=== PATIENT | male | born 1970 | race Caucasian/White ===

== ENCOUNTER 2021-11-29 11:22 | Emergency (ER) | payer SELFPAY ==
--- NOTE | 2021-11-29 11:30 | ECG_ITS ---
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 Measurements Intervals [place] Rate: 110 P: 8 UT: 132 QRS: 30 QRSD: 82 T: 51 QT: 318 QTc: 431 Interpretive Statements SINUS TACHYCARDIA INDETERMINATE AXIS No previous ECG available for comparison Electronically Signed On 11-29-2021 17:57:25 CDT by Caitie Mitchell M.D. [id number]
[2021-11-29 11:31] VITALS: BP 138/93; PULSE 117; RESP 20; TEMP 36.5; O2SAT 95; BMI 47.9
--- NOTE | 2021-11-29 11:31 | XR_ITS ---
WS: [id number] Exam: XR chest 1V portable [id number] Date/Time of Exam: 11/29/2021 11:31 AM Reason For Exam: chest pain Comparison 12/30/2015. Findings: The lungs are clear and fully expanded. Costophrenic angles are sharp. No infiltrates. Bronchovascula r relief appears normal. Cardiac silhouette is unremarkable. Bony elements are intact. XR/XR chest 1V portable [id number] IMPRESSION: Unremarkable chest radiograph.
[2021-11-29 12:45] LABS: Basophils # 0.1 10^3/uL (0.0-0.1); Basophils % 0.9 %; Eosinophils % 0.4 %; Hemoglobin 15.7 g/dL (11.7-16.6); Lymphocytes # 0.8 10^3/uL (0.8-4.8); Lymphocytes % 10.2 %; Mean Corpuscular HGB Conc 33.4 g/dL (30.0-36.0); Mean Corpuscular Volume 86.9 fl (80-94); Mean Platelet Volume 9.1 fL (7.4-10.4); Monocytes # 0.5 10^3/uL (0.2-0.9); Monocytes % 6.4 %; Neutrophils # 6.29 10^3/uL (1.8-7.7); Neutrophils % 81.6 %; Nucleated Red Blood Cells % 0 %; Platelet Count 298 10^3/cmm (130-400); Red Blood Count 5.41 10^6/uL (4.1-5.3); White Blood Count 7.7 10^3/uL (4.0-10.0)
[2021-11-29 13:07] LABS: Alanine Aminotransferase 19 U/L (0-41); Albumin Level 4.5 g/dL (3.5-5.2); Alkaline Phosphatase 114 U/L (40-130); Anion Gap 19.1 (5-19); Aspartate Amino Transferase 19 U/L (0-40); Blood Urea Nitrogen 13 mg/dL (6-20); Calcium 9.4 mg/dL (8.5-10.5); Carbon Dioxide 22 mmol/L (22-29); Chloride 104 mmol/L (98-107); Globulin 3.6 g/dL (1.3-4.6); Glucose 108 mg/dL (65-115); Osmolality Calculated 293 mOsm/kg (285-295); Potassium 4.1 mmol/L (3.5-5.1); Sodium 141 mmol/L (136-145); Total Protein 8.1 g/dL (6.6-8.7); Troponin(5th) Baseline 6 ng/L (0-15)
--- NOTE | 2021-11-29 13:07 | W.ED.GENADLT ---
HPI - General Adult General: Chief complaint: Chest Pain Stated complaint: chest pain Time Seen by Provider: 11/29/21 12:44 History of Present Illness: CC: Chest Pain HPI: This is a 51yo patient no PMH presenting to the ED complaining of acute sudden onset intermittent pressure-like chest pain for the last 6-month now worsening today. Patient is was at work when she felt lightheaded with chest pressure earlier today and almost passed out. Happened about an hour ago. Patient describes mild pressure-like chest pain. No associated with shortness of breath, chest pain or dyspnea on exertion. Pain is not tearing in nature and does not radiate to the back. Pain not associated with vomiting or PO intake. Denies any recent sympathomimetic drug use. Patient denies any cough. Denies palpitations, dysphagia, diaphoresis, radiation of pain to bilateral arms, jaw. Denies F/N/V/D. Patient denies any recent immobility, surgery, unilateral leg swelling, or prior PE. Patient denies any orthopnea. Onset: 1 hr ago Duration: intermiittent for a few minutes Location: home Severity: moderate Associated symptoms: Reports chest pain; Deny dyspnea, nausea, rash, palpitations or vomiting Review of Systems Const: Denies: fever(s) or chills Eyes: Denies: change in vision ENMT: Denies: mouth pain Card: Reports: chest pain; Denies: palpitations Resp: Denies: dyspnea or non-productive cough GI: Denies: abdominal pain, nausea, vomiting or diarrhea : Denies: dysuria Musc: Denies: extremity pain Skin/Breast: Denies: rash or new lesions Neuro: Reports: other (+light-headedness); Denies: weakness in extremities Psych: Reports: other (Normal mood) Fernando/Lymph: Denies: easy bruising PFSH ED PFSH: Medical History No pertinent past medical history Social History Smoking and tobacco status: never smoked Alcohol intake: never Substance/Drug Use: never Physical Exam Const: COMMON NORMALS: alert HENMT: COMMON NORMALS: atraumatic HEAD & SCALP: atraumatic MOUTH: moist mucous membranes not abnormal Eye: COMMON NORMALS: EOMs intact bilaterally and conjunctivae normal CONJUNCTIVA: Yes conjunctivae normal Neck/C-Spine: COMMON NORMALS: full ROM and supple Resp: COMMON NORMALS: normal respiratory effort and clear to auscultation bilaterally AUSCULTATION: clear to auscultation bilaterally Cardio: COMMON NORMALS: regular rate RATE: regular rate OTHER: 2+ radial pulses b/l GI: COMMON NORMALS: Soft to palpation and non-tender PALPATION: Yes Soft to palpation OTHER: No focal TTP. NO guarding rebound, guarding, rigidity. No CVA tenderness to percussion. Neg Hubbard/Neg McBurney's point tenderness, no suprabupic tenderness to palpation. Extremity: COMMON NORMALS: full ROM OTHER: +no lower extremity edema b/l Neuro: SENSORIUM/ORIENTATION: Yes alert MOTOR EXAM: No Abnormal motor strength present and Other motor observations present (no focal motor deficits) Psych: COMMON NORMALS: speech normal SPEECH: Yes normal speech MOOD & AFFECT: Yes euthymic mood Course Vital Signs: Vital signs: Vital Signs Temperature 97.7 F 11/29/21 11:31 Pulse Rate 90 11/29/21 14:03 Respiratory Rate 16 11/29/21 14:03 Blood Pressure 132/87 11/29/21 14:03 Pulse Oximetry 93 11/29/21 14:03 Oxygen Delivery Me thod 11/29/21 14:03 MDM - General Adult Medical Decision Making [51]yo patient w/ no known PMH presenting to the ED with evaluation of new onset pressure chest pain and near syncope today. HDS, pulse 2+ radially bilaterally, no signs of fluid overload, AAOx3, neuro exam intact. Workup: ECG x 2, CXR, CBC, BMP, Troponin x 2 Interventions: ASA, morphine 4mg Findings: ECG: No overt evidence of STEMI, hyperacute T waves, localizable STD or T wave inversions. No evidence of Brugada?s sign, delta wave, epsilon wave, significantly prolonged QTc, or malignant arrhythmia. No Q waves. Other Labs unremarkable for emergent problems. CXR: Without PTX, PNA, or widened mediastinum Last Stress Test: never Last Heart Catheterization: never HEART Score: 2 Dimer wnl [2:06] On reassessment, the patient is HDS, no complaints of persistent chest pain in the ED after evaluation. ECG is non-ischemic. Troponin x2 within normal limit. Workup today is unremarkable. Doubt ACS/PE or other emergent causes of chest pain. HEART SCORE of 2 (age and story). Doubt ACS/PE or other emergent causes of chest pain. No suspicion for aortic dissection given no widened mediastinum, 2+ upper extremity pulses, or tearing pain. No suspicion for PE given no pleuritic chest pain, recent immobilization or surgery hemoptysis, or other VTE risk factors. EKG is non-ischemic. XR normal. Patiently, patient was noted to be tachycardic on arrival. However after IVF, patient reports feeling symptomatically proved. She no longer complains lightheadedness. I have given patient follow up with our rehabilitation caseworker to be seen by our outpatient Cardiology for evaluation of chest pain. Patient aware of a call from our rehabilitation caseworker to schedule for appointment(s) and verbalizes understanding of the importance of following up. Rx: Tylenol 500mg Q6Hrs x 5days PRN pain Disposition: Discharge. Strict return precautions discussed with the patient with full understanding. Advised patient to follow up promptly with a primary care provider in 24-48 hrs if the patient has persistent symptoms. Given return instructions for any crushing/tearing chest pain, focal weakness, syncope or any new or concerning issues. Lab Data : 11/29/21 12:34 11/29/21 12:34 Radiology Impressions Chest X-Ray 11/29/21 11:31 IMPRESSION: Unremarkable chest radiograph. Laboratory Results WBC 7.7 10^3/uL (4.0-10.0) 11/29/21 12:34 RBC 5.41 10^6/uL (4.1-5.3) H 11/29/21 12:34 Hgb 15.7 g/dL (11.7-16.6) 11/29/21 12:34 Hct 47.0 % (42.0-52.0) 11/29/21 12:34 MCV 86.9 fl (80-94) 11/29/21 12:34 MCH 29.0 pg (28.0-34.0) 11/29/21 12:34 MCHC 33.4 g/dL (30.0-36.0) 11/29/21 12:34 RDW 13.0 % (12.1-15.1) 11/29/21 12:34 Plt Count 298 10^3/cmm (130-400) 11/29/21 12:34 MPV 9.1 fL (7.4-10.4) 11/29/21 12:34 Neut % (Auto) 81.6 % 11/29/21 12:34 Lymph % (Auto) 10.2 % 11/29/21 12:34 [place] % (Auto) 6.4 % 11/29/21 12:34 Eos % (Auto) 0.4 % 11/29/21 12:34 Baso % (Auto) 0.9 % 11/29/21 12:34 Neut # (Auto) 6.29 10^3/uL (1.8-7.7) 11/29/21 12:34 Lymph # (Auto) 0.8 10^3/uL (0.8-4.8) 11/29/21 12:34 [place] # (Auto) 0.5 10^3/uL (0.2-0.9) 11/29/21 12:34 Eos # (Auto) 0.0 10^3/uL (0.0-0.8) 11/29/21 12:34 Baso # (Auto) 0.1 10^3/uL (0.0-0.1) 11/29/21 12:34 Nucleated RBC % (auto) 0 % 11/29/21 12:34 Nucleated RBCs # 0.0 /100WBC 11/29/21 12:34 D-Dimer 0.37 ug/mIFEU (0-0.59) 11/29/21 12:34 Sodium 141 mmol/L (136-145) 11/29/21 12:34 Potassium 4.1 mmol/L (3.5-5.1) 11/29/21 12:34 Chloride 104 mmol/L (98-107) 11/29/21 12:34 Carbon Dioxide 22 mmol/L (22-29) 11/29/21 12:34 Anion Gap 19.1 (5-19) H 11/29/21 12:34 BUN 13 mg/dL (6-20) 11/29/21 12:34 Creatinine 0.9 mg/dL (0.7-1.2) 11/29/21 12:34 GFR Calculation 89.0 mL/min (90-130) L 11/29/21 12:34 Glucose 108 mg/dL (65-115) 11/29/21 12:34 Calculated Osmolality 293 mOsm/kg (285-295) 11/29/21 12:34 Calcium 9.4 mg/dL (8.5-10.5) 11/29/21 12:34 Total Bilirubin 1.0 mg/dL (0.15-1.2) 11/29/21 12:34 AST 19 U/L (0-40) 11/29/21 12:34 ALT 19 U/L (0-41) 11/29/21 12:34 Alkaline Phosphatase 114 U/L (40-130) 11/29/21 12:34 Troponin T Baseline 6 ng/L (0-15) 11/29/21 12:34 Troponin T 120 Minute 6.00 ng/L (0-15) 11/29/21 13:39 Total Protein 8.1 g/dL (6.6-8.7) 11/29/21 12:34 Albumin 4.5 g/dL (3.5-5.2) 11/29/21 12:34 Globulin 3.6 g/dL (1.3-4.6) 11/29/21 12:34 Discharge Plan Discharge Patient Disposition: Home Clinical Impression: Chest pain Condition: Stable Prescriptions: No Action aspirin 81 mg Tablet,Delayed Release (Dr/Ec) 81 mg PO DAILY Discharge Orders: Discharge ED (Routine); Ordered 11/29/21 Ordered By: Akil De Leon Discharge Diet: Advance as tolerated Discharge Activity: Increase activity as tolerated Patient Instructions: Chest Pain (ED) Activity Restrictions/Additional Instructions: Come back to the emergency room if your chest pain worsens, have any fever or chills, worsening shortness of breath, worsening exertional lightheadedness, or any new or concerning complaints. Our rehabilitation caseworker will have you follow-up with Cardiology in the next few days. You would be expected to have a phone call with our rehabilitation caseworker who will put you on the schedule. You can expect a call from us in the next 2-3 days. If you don't hear from us, call us back in the emergency room at [phone]. Coding Level of Care Code ED Motorcycle Deliverer for Chavez Fwd Exam Comprehensive
--- NOTE | 2021-11-29 13:28 | ECG_ITS ---
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 Measurements Intervals [place] Rate: 93 P: -2 [place]: 156 QRS: -35 QRSD: 86 T: 64 QT: 339 QTc: 422 Interpretive Statements SINUS RHYTHM INDETERMINATE AXIS No previous ECG available for comparison Electronically Signed On 11-29-2021 18:19:11 CDT by Caitie Mitchell M.D. [id number]
[2021-11-29 13:34] LABS: D Dimer 0.37 ug/mIFEU (0-0.59)
[2021-11-29] MEDS: sodium chloride 0.9% 1,000 ML 999 ML IV (13:47)
[2021-11-29] MEDS: aspirin 325 mg Tablet PO (13:47)
[2021-11-29] MEDS: morphine 4 mg/mL SDV 1 mL IVP (13:47)
[2021-11-29 14:03] VITALS: BP 132/87; PULSE 90; RESP 16; O2SAT 93
--- NOTE | 2021-11-29 14:22 | PC.NURSE ---
laying 81 136/93 sitting 100 139/91 standing 91 129/93
[2021-11-29 14:43] LABS: Troponin 5 2HR Delta 0 ABS# (0-10)
--- NOTE | 2021-11-30 09:26 | DCPLANNER ---
Addendum entered by Ximena Kumari 04/04/22 15:53: Patient had a follow up appointment scheduled with heart care - patient did attend appointment. Addendum entered by Ximena Kumari 12/01/21 15:24: Patient has a follow up appointment scheduled for Sunday, January 18, 2022 at 1:[address] Mitchell at [facility]. Clinic will call patient with appointment information. Original Note: manager assurance had message to schedule a follow up appointment for patient with cardiology. manager assurance sent patients information to the front office staff at [facility]. Patients information will be printed and reviewed. Clinic will call patient with appointment information.
== END 2021-11-29 14:34 | disposition home or self-care (01) ==
PROVIDERS: Physician Assistant; Emergency Provider Emergency Medicine
DX: R07.9 Chest pain, unspecified (principal); Z79.82 Long term (current) use of aspirin
CPT/HCPCS: 71045; 80053; 84484; 85025; 85378; 93005; 96361; 96374; 99285; J2270; J7030